=== PATIENT | female | born 1940 | race Caucasian/White ===

== ENCOUNTER 2021-01-21 19:24 | Emergency (ER) | payer OTHER, BC ==
[~2021-01-21] VITALS: Ht 152.4 cm; Wt 47.6 kg
[~2021-01-21 19:24] MED LIST: ALDACTONE25 MG PO; ALEVE220 M1 PO; ALLEGRA ALLERG180 MG PO; ASPIRIN81 M2 PO; CALTRATE 600 +1 EACH PO; CALTRATE 600600 MG PO; CALTRATE-600 W1 EACH PO; CELEBREX 200 M200 M1 PO; CHEST CONGESTI400 MG PO; COLACE100 MG PO; DOXYCYCLINE HYC20 MG PO; ESTRACE VAG; ESTRACE1 MG VAG; EVISTA PO; FLEXERIL PO; FLONASE 0.05%50 MCG NASAL; GLUCOSAMIN-CHO1 EACH PO; HYDROCODON-ACE1 EAC7 PO; LISINOPRIL20 MG PO; METAMUCIL PAC1 UDPK1 PO; METAMUCIL PAC1 UDPKT PO; METAMUCIL197.2 GM PO; METROGEL55 GM TOP; MUCINEX600 MG PO; MULTIVITAMINS PO; NASAL & SINUS D30 MG PO; PERCOCET 10-321 EACH PO; PROTONIX40 M2 PO; PSEUDOEPHEDRIN120 M1 PO; SUDAFED30 MG PO; VERAMYST10 GM NASAL; VITAMIN D1000 UNI1 PO; ZANTAC 150MG T150 M1 PO; ZOCOR 20 MG TAB20 M1 PO
[2021-01-21 20:51] VITALS: BP 140/63
== END 2021-01-21 20:54 | disposition home or self-care (01) ==
LOC: ER 19:24
DX: S61.211A Laceration without foreign body of left index finger without damage to nail, initial encounter (principal); Z79.891 Long term (current) use of opiate analgesic; Z79.899 Other long term (current) drug therapy; Z79.82 Long term (current) use of aspirin; Z79.1 Long term (current) use of non-steroidal anti-inflammatories (NSAID); Z88.6 Allergy status to analgesic agent; Z88.8 Allergy status to other drugs, medicaments and biological substances